=== PATIENT | male | born 1955 | race Caucasian/White ===

== ENCOUNTER 2018-03-03 05:58 | Inpatient (IN) | payer OTHER ==
[2018-02-26 15:26] LABS: BASOPHILS % (AUTO) 0.4 % (0-1); EOSINOPHILS # (AUTO) 0.1 X10'3 (0-0.9); EOSINOPHILS % (AUTO) 1.9 % (0-6); LYMPHOCYTES # (AUTO) 2.1 X10'3 (1.1-4.8); LYMPHOCYTES % (AUTO) 31.4 % (21-51); MEAN CORPUSCULAR HEMOGLOBIN 32.2 PG (27.0-31.0); MEAN CORPUSCULAR HGB CONC 34.1 % (33.0-36.5); MEAN CORPUSCULAR VOLUME 94.5 FL (78-98); MEAN PLATELET VOLUME 7.3 FL (7.4-10.4); MONOCYTES # (AUTO) 0.8 X10'3 (0-0.9); MONOCYTES % (AUTO) 11.4 % (2-12); NEUTROPHILS # (AUTO) 3.6 X10'3 (1.8-7.7); NEUTROPHILS % (AUTO) 54.9 % (42-75); PRE OP HEMATOCRIT 47.3 % (42.0-52.0); PRE OP HEMOGLOBIN 16.1 g/dL (14.0-17.9); PRE OP PLATELET COUNT 269 X10'3 (140-440); RED BLOOD COUNT 5.01 X10'6 (4.70-6.10); RED CELL DISTRIBUTION WIDTH 13.1 % (11.5-14.5)
[2018-02-26 15:41] LABS: ALBUMIN 3.8 G/DL (3.4-5.0); ALKALINE PHOSPHATASE 82 IU/L (46-116); BLOOD UREA NITROGEN 25 MG/DL (7-18); BUN/CREATININE RATIO 23.8 (5.4-32.0); CHLORIDE 104 MMOL/L (99-107); CREATININE 1.05 MG/DL (0.60-1.10); PRE OP ALT 56 U/L (30-65); PRE OP ANION GAP 6 (8-16); PRE OP AST 32 U/L (10-37); PRE OP BILIRUB, TOTAL 0.6 MG/DL (0.0-1.0); PRE OP GLUCOSE 91 MG/DL (70-104); PRE OP SODIUM 139 MMOL/L (135-145); TOTAL CARBON DIOXIDE 28.9 MMOL/L (24-32); TOTAL PROTEIN 7.6 G/DL (6.4-8.2); eGFR 71 ML/MIN
[2018-02-26 15:45] LABS: PRE OP PROTIME 10.2 SECONDS (9.0-12.0)
[2018-02-26 16:01] LABS: CLARITY,URINE CLEAR (Clear); COLOR,URINE YELLOW (Yellow); GLUCOSE, URINE NEGATIVE (Neg); KETONES,URINE NEGATIVE (Neg); LEUKOCYTE ESTERASE ,URINE NEGATIVE (Neg); NITRITES, URINE NEGATIVE (Neg); OCCULT BLOOD,URINE NEGATIVE (Neg); PH,URINE 5.5 (4.8-8.0); PROTEIN,URINE NEGATIVE (Neg); UA COLLECTION TYPE CLN CATCH MIDSTREAM; UROBILINOGEN,URINE 0.2 E.U/dL (0.2-1.0)
[2018-03-03] VITALS (17 sets, daily range): BP systolic 106–146; BP diastolic 57–90
[~2018-03-03] VITALS: Ht 180.3 cm; Wt 98.9 kg
[~2018-03-03 05:58] MED LIST: ASCO100T10 PO; ASPI-1265 PO; CHOL100046 PO; DOCUMENT DATE & TIME OF BETA-BLOCKER PO ONE; FISH OIL; LOSA50TA21 PO; MELO-102 PO; METO100T7 PO; MONT10TA24 PO; OLIV250C PO; RED RICE YEAST; ROSU5TAB PO; UBID10CA4; VITE1000C PO; acetaminophen 325mg tablet PO ONE; cefazolin/dext.iso 2gm/100 ML IV ONE; celeCOXIB 100mg capsule PO ONE; famotidine 20mg tablet PO ONE; gabapentin 300mg capsule PO ONE; metoclopramide 5 mg/ml inj IV ONE; oxyCODONE SR 10mg (sust. release) tab -2 tabs (20mg) PO ONE; ringers solution, lacted 1,000 ML IV SCH; tranexamic acid inj. 1,000 MG in normal saline 100ml IV soln 90 ML IV ONE; vancomycin inj 1,500 MG in normal saline 300ml IV soln IV ONE
[2018-03-03] MEDS ORDERED: LIDOcaine 1% (10mg/ml) 2ml vial ONE (06:25)
[2018-03-03] MEDS ORDERED: bisacodyl 10mg suppository rectal RC PRN (06:50)
[2018-03-03] MEDS ORDERED: oxyCODONE/APAP 5-325mg tablet PO PRN (06:50)
[2018-03-03] MEDS ORDERED: magnesium hydroxide 30ml (MOM) UD suspension PO PRN (06:50)
[2018-03-03] MEDS ORDERED: diphenhydrAMINE 25mg capsule PO PRN ×2 (06:50)
[2018-03-03] MEDS ORDERED: acetaminophen 325mg tablet PO PRN (06:50)
[2018-03-03] MEDS ORDERED: cloNIDine hcl/PF 100mcg/ml inj ONE (08:16)
[2018-03-03] MEDS ORDERED: tetracaine 1% (10mg/ml) pres. free inj. ONE (08:16)
[2018-03-03] MEDS ORDERED: MIDAZolam 1mg/ml 10ml vial ONE (08:18)
[2018-03-03] MEDS ORDERED: fentaNYL/PF 50MCG/1 ML 2ML syringe ONE (08:18)
[2018-03-03] MEDS ORDERED: propofol inj 20 ML IV ONE ×2 (08:44)
[2018-03-03] MEDS ORDERED: vancomycin 1,000mg inj ONE (08:54)
[2018-03-03] MEDS ORDERED: ringers solution, lacted 1,000 ML IV SCH (09:14)
[2018-03-03] MEDS ORDERED: meperidine/PF 25mg/ml syringe IV PRN ×3 (09:15)
[2018-03-03] MEDS ORDERED: proCHLORperazine 10 MG/2 ml inj IV PRN (09:15)
[2018-03-03] MEDS ORDERED: ondansetron/PF 4mg/2ml inj IV PRN ×2 (09:15→14:00)
[2018-03-03] MEDS ORDERED: morphine 4 MG/ML inj SYRINge IV PRN ×2 (09:15)
[2018-03-03] MEDS ORDERED: ROPIVAcaine 0.5% (5mg/ml) 30ml vial ONE (10:12)
[2018-03-03] MEDS ORDERED: HYDROmorphone 1 mg/ml syringe IV PRN (12:15)
[2018-03-03] MEDS: gabapentin 300mg capsule PO SCH ×2 (13:59→20:38)
[2018-03-03] MEDS ORDERED: tranexamic acid inj. 1,000 MG in normal saline 100ml IV soln 100 ML IV ONE (15:00)
[2018-03-03] MEDS: oxyCODONE/APAP 10/325mg tablet PO PRN ×2 (15:45→19:57)
[2018-03-03] MEDS: cefazolin/dext.iso 2gm/100ml 100 ML IV SCH (15:47)
[2018-03-03] MEDS: potassium cl 20mEq in 1/2 NS 1,000 ML IV SCH (17:17)
[2018-03-03] MEDS: sennosides 8.6mg tablet PO SCH (20:38)
[2018-03-03] MEDS: metoprolol succinate 25mg (24-HOUR) SR. Tablet PO SCH (20:38)
[2018-03-03] MEDS: ascorbic acid 500mg tablet PO SCH (20:38)
[2018-03-04] MEDS: oxyCODONE/APAP 10/325mg tablet PO PRN ×5 (00:13→20:37)
[2018-03-04] MEDS: cefazolin/dext.iso 2gm/100ml 100 ML IV SCH ×4 (00:13→23:41)
[2018-03-04] MEDS: potassium cl 20mEq in 1/2 NS 1,000 ML IV SCH ×4 (03:58→20:14)
[2018-03-04 06:23] LABS: BASOPHILS % (AUTO) 0.1 % (0-1); EOSINOPHILS # (AUTO) 0.2 X10'3 (0-0.9); EOSINOPHILS % (AUTO) 1.3 % (0-6); HEMATOCRIT 39.5 % (42.0-52.0); HEMOGLOBIN 13.6 g/dl (14.0-17.9); LYMPHOCYTES # (AUTO) 1.3 X10'3 (1.1-4.8); LYMPHOCYTES % (AUTO) 9.3 % (21-51); MEAN CORPUSCULAR HEMOGLOBIN 32.3 PG (27.0-31.0); MEAN CORPUSCULAR HGB CONC 34.5 % (33.0-36.5); MEAN CORPUSCULAR VOLUME 93.7 FL (78-98); MEAN PLATELET VOLUME 7.3 FL (7.4-10.4); MONOCYTES # (AUTO) 1.2 X10'3 (0-0.9); MONOCYTES % (AUTO) 8.7 % (2-12); NEUTROPHILS # (AUTO) 10.8 X10'3 (1.8-7.7); NEUTROPHILS % (AUTO) 80.6 % (42-75); PLATELET COUNT 240 X10'3 (140-440); RED BLOOD COUNT 4.21 X10'6 (4.70-6.10); RED CELL DISTRIBUTION WIDTH 12.5 % (11.5-14.5); WHITE BLOOD COUNT 13.4 X10'3 (4.5-11.0)
[2018-03-04 06:32] LABS: ANION GAP 11 (8-16); CHLORIDE 105 MMOL/L (99-107); POTASSIUM 3.9 MMOL/L (3.5-5.1); SODIUM 138 MMOL/L (135-145); TOTAL CARBON DIOXIDE 22.4 MMOL/L (24-32)
[2018-03-04] MEDS ORDERED: ROPIVAcaine inj 250 MG, ketorolac tromethamine inj. 15 MG, CloNIDine/PF inj 80 MCG, epi... IU ONE ×5 (08:15)
[2018-03-04] MEDS: atorvastatin 10mg tablet PO SCH (08:55)
[2018-03-04] MEDS: losartan 50mg tablet PO SCH (08:55)
[2018-03-04] MEDS: montelukast 10mg tablet PO SCH (08:56)
[2018-03-04] MEDS: gabapentin 300mg capsule PO SCH ×3 (08:56→20:37)
[2018-03-04] MEDS: multivitamins, therapeutics tablet PO SCH (08:57)
[2018-03-04] MEDS: aspirin 325mg tablet PO SCH (08:57)
[2018-03-04] MEDS: ascorbic acid 500mg tablet PO SCH ×2 (08:57→20:37)
[2018-03-04 10:00] VITALS: BP 106/65
[2018-03-04 10:45] VITALS: BP 167/68
[2018-03-04 11:37] VITALS: BP 117/65
[2018-03-04] MEDS: HYDROmorphone 1 mg/ml syringe IV PRN ×2 (16:19→21:30)
[2018-03-04 18:00] VITALS: BP 120/67
[2018-03-04] MEDS: sennosides 8.6mg tablet PO SCH (20:36)
[2018-03-04] MEDS: celeCOXIB 100mg capsule PO SCH (20:36)
[2018-03-04] MEDS: metoprolol succinate 25mg (24-HOUR) SR. Tablet PO SCH (20:37)
[2018-03-04 22:00] VITALS: BP 137/73
[2018-03-05] MEDS: oxyCODONE/APAP 10/325mg tablet PO PRN ×2 (00:14→03:53)
[2018-03-05] MEDS ORDERED: oxyCODONE/APAP 10/325mg tablet PO PRN ×2 (05:00→07:45)
[2018-03-05 06:04] LABS: BASOPHILS % (AUTO) 0.2 % (0-1); EOSINOPHILS # (AUTO) 0.3 X10'3 (0-0.9); EOSINOPHILS % (AUTO) 2.7 % (0-6); HEMATOCRIT 39.6 % (42.0-52.0); HEMOGLOBIN 13.3 g/dl (14.0-17.9); LYMPHOCYTES # (AUTO) 1.2 X10'3 (1.1-4.8); LYMPHOCYTES % (AUTO) 12.7 % (21-51); MEAN CORPUSCULAR HEMOGLOBIN 31.9 PG (27.0-31.0); MEAN CORPUSCULAR HGB CONC 33.7 % (33.0-36.5); MEAN CORPUSCULAR VOLUME 94.6 FL (78-98); MEAN PLATELET VOLUME 7.1 FL (7.4-10.4); MONOCYTES # (AUTO) 1.6 X10'3 (0-0.9); MONOCYTES % (AUTO) 15.9 % (2-12); NEUTROPHILS # (AUTO) 6.7 X10'3 (1.8-7.7); NEUTROPHILS % (AUTO) 68.5 % (42-75); PLATELET COUNT 223 X10'3 (140-440); RED BLOOD COUNT 4.19 X10'6 (4.70-6.10); RED CELL DISTRIBUTION WIDTH 12.7 % (11.5-14.5); WHITE BLOOD COUNT 9.8 X10'3 (4.5-11.0)
[2018-03-05] MEDS: atorvastatin 10mg tablet PO SCH (07:46)
[2018-03-05] MEDS: aspirin 325mg tablet PO SCH (07:46)
[2018-03-05] MEDS: losartan 50mg tablet PO SCH (07:47)
[2018-03-05] MEDS: multivitamins, therapeutics tablet PO SCH (07:47)
[2018-03-05] MEDS: celeCOXIB 100mg capsule PO SCH (07:47)
[2018-03-05] MEDS: montelukast 10mg tablet PO SCH (07:47)
[2018-03-05] MEDS: ascorbic acid 500mg tablet PO SCH (07:47)
[2018-03-05] MEDS: gabapentin 300mg capsule PO SCH (07:47)
[2018-03-05] MEDS ORDERED: ASPI-1 PO (08:45)
== END 2018-03-05 10:25 | disposition home or self-care (01) | DRG 470 ==
LOC: PAS IN 05:58 → EDSTATUS 07:30 → ORTHO 4S 11:50
PROVIDERS: ADMIT Orthopaedic Surgery; ATTEND Orthopaedic Surgery
PROC: 3E0T3BZ Introduction of Anesthetic Agent into Peripheral Nerves and Plexi, Percutaneous Approach (ICD-10-PCS; 2018-03-03)
PROC: 0SRD0J9 Replacement of Left Knee Joint with Synthetic Substitute, Cemented, Open Approach (ICD-10-PCS; principal; 2018-03-03 08:16)
DX: M17.12 Unilateral primary osteoarthritis, left knee (principal); D62 Acute posthemorrhagic anemia; M76.51 Patellar tendinitis, right knee; I25.10 Atherosclerotic heart disease of native coronary artery without angina pectoris; Z96.651 Presence of right artificial knee joint; I10 Essential (primary) hypertension; Z79.899 Other long term (current) drug therapy; Z95.5 Presence of coronary angioplasty implant and graft
CPT/HCPCS: 36415; 71046; 73560; 80051; 80053; 81003; 85025; 85610; 85730; 87070; 93005; 97110; 97116; 97162; A6449; A6455; A7000; C1713; C1758; C1776; G0378; J0171; J0690; J0735; J1170; J1885; J2250; J2405; J2704; J2765; J2795; J3010; J3370; J3490; J7030; J7120

== ENCOUNTER 2019-01-26 01:03 | Outpatient (CLI) | payer SELFPAY ==
[~2019-01-26 01:03] MED LIST changes: +ASPI-1 PO; -DOCUMENT DATE & TIME OF BETA-BLOCKER PO ONE; -LOSA50TA21 PO; +LOSA50TA64 PO; -acetaminophen 325mg tablet PO ONE; -cefazolin/dext.iso 2gm/100 ML IV ONE; -celeCOXIB 100mg capsule PO ONE; -famotidine 20mg tablet PO ONE; -gabapentin 300mg capsule PO ONE; -metoclopramide 5 mg/ml inj IV ONE; -oxyCODONE SR 10mg (sust. release) tab -2 tabs (20mg) PO ONE; -ringers solution, lacted 1,000 ML IV SCH; -tranexamic acid inj. 1,000 MG in normal saline 100ml IV soln 90 ML IV ONE; -vancomycin inj 1,500 MG in normal saline 300ml IV soln IV ONE
[2019-01-26 09:13] LABS: HEMOGLOBIN A1C 5.7 % (4.5-6.2)
[2019-01-26 09:18] LABS: CHOL/HDL RATIO 2.96 (0.00-4.99)
== END 2019-01-26 23:59 | disposition home or self-care (01) ==
LOC: HW HEART 01:03
DX: Z13.6 Encounter for screening for cardiovascular disorders (principal); R00.1 Bradycardia, unspecified; I10 Essential (primary) hypertension
CPT/HCPCS: 36415

== ENCOUNTER 2025-01-03 06:10 | Day surgery (SDC) | payer OTHER, MEDICARE, BC ==
[2024-12-31 11:32] LABS: MEAN PLATELET VOLUME 6.8 FL (7.4-10.4); RED CELL DISTRIBUTION WIDTH 14.6 % (11.5-14.5)
[2024-12-31 11:41] LABS: CREATININE 1.04 MG/DL (0.60-1.10); TOTAL CARBON DIOXIDE 29.9 MMOL/L (24-32); eGFR 70 ML/MIN
[~2025-01-03] VITALS: Ht 182.9 cm; Wt 105.9 kg
[2025-01-03] VITALS (9 sets, daily range): BP systolic 122–154; BP diastolic 69–84; PULSE 49–60; RESP 12–17; TEMP 97.8; O2SAT 94–98
[~2025-01-03 06:10] MED LIST changes: -FISH OIL; +FISH OIL PO; +MONT-40 PO; -MONT10TA24 PO
--- NOTE | 2025-01-03 06:44 | ELECTROCARDIOGRAPH REPORT ---
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 Rain Marion Measurements Intervals [place] Rate: 57 P: 38 TX: 189 QRS: 22 QRSD: 96 T: 2 QT: 422 QTc: 411 Interpretive Statements Sinus rhythm Borderline T abnormalities, inferior leads Electronically Signed On 01-03-2025 6:54:[address] Rain Marion Please click the below link to view image of tracing.
[2025-01-03] MEDS ORDERED: ROSU10TA72 PO (07:00)
[2025-01-03] MEDS ORDERED: CELE-148 PO (07:00)
[2025-01-03] MEDS ORDERED: TAMS-55 PO (07:00)
[2025-01-03] MEDS ORDERED: NIAC500C8 PO (07:03)
[2025-01-03] MEDS ORDERED: OXYC-150 PO (07:03)
[2025-01-03 07:12] LABS: INR 1.0 INR
[2025-01-03] MEDS ORDERED: verapamil 2.5 mg/ml inj IV ONE (07:47)
[2025-01-03] MEDS ORDERED: LIDOcaine 1% (10mg/ml) 2ml vial ONE (07:47)
[2025-01-03] MEDS ORDERED: iohexol 350 MG/ML 50ML vial IV ONE ×2 (07:48→08:52)
[2025-01-03] MEDS ORDERED: fentaNYL/PF 50MCG/1 ML 2ML syringe ONE (07:48)
[2025-01-03] MEDS ORDERED: midazolam 1 mg/ML 2ml injection ONE (07:48)
[2025-01-03] MEDS ORDERED: heparin 1,000unit/ml 10ml vial 10 ML ONE (07:48)
[2025-01-03] MEDS ORDERED: nitroGLYCERIN 500mcg/5mL D5W 5 ML IV ONE (07:52)
[2025-01-03] MEDS ORDERED: LIDOcaine 1% 30ml preserv. free vial ONE (08:53)
[2025-01-03 10:08] LABS: ISTAT HGB ART 14.3 g/dl (14.0-17.9); ISTAT Hct ART 42 %PCV (42-52); ISTAT O2 SATURATION ARTERIAL 95 % (95-98); ISTAT SOURCE ART
[2025-01-03] MEDS ORDERED: normal saline 1000ml 1,000 ML IV SCH (10:25)
[2025-01-03 10:58] LABS: ISTAT HGB MIX 12.6 g/dl (14.0-17.9); ISTAT Hct MIX 37 %PCV (42-52); ISTAT O2 SATURATION MIX VENOUS 71 % (60-80); ISTAT SOURCE VEN
[2025-01-03] MEDS ORDERED: ROSU40TA89 PO (13:30)
[2025-01-03] MEDS ORDERED: ISOS30TA84 PO (13:30)
--- NOTE | 2025-01-04 08:45 | CARDIOLOGY REPORT ---
DATE OF SERVICE: 01/03/2025 DICTATING PHYSICIAN: TIERNEY Solano MD CARDIAC CATHETERIZATION GENDER: Male. AGE: 69 years HEIGHT: 182 cm WEIGHT: 105 kilos BODY SURFACE AREA: 2.26 meters square. INDICATION: The patient is a 69-year-old male with history of diabetes, hypertension, hyperlipidemia, CAD status post coronary artery stenting. History of CAD dates back to PTCA stenting of his proximal mid LAD in the year 1999 with 3/31 mm [place] stent in RCA, had a 50% narrowing. Back in 03/2023, the patient had a positive stress test. At that time, he had preferred medical therapy. A repeat stress test in 11/2024 showed again persisting reversible defect in the distal inferolateral wall. After discussing risks, benefits, and alternative options, progressive shortness of breath, the patient prefers to proceed with coronary angiography. Risks, benefits, and alternative options discussed. Informed consent was obtained. PROCEDURE TECHNIQUE: The patient underwent left heart catheterization via right radial approach and 6-[place] right radial sheath was put in. After completion of the procedure, hemostasis achieved with radial band. The patient tolerated the procedure. The patient had a right heart catheterization via right femoral approach, 8-[place] right femoral sheath. Postprocedure right access secured with manual compression. The patient tolerated the procedure well. COMPLICATIONS: None. Primary physician for the patient is less than medical Clinic. PROCEDURES DONE: * Ultrasound guided right radial artery visualization and access. * Right heart catheterization. * Left heart catheterization. * LVG. * Coronary cineangiography. * GALEN injection. * Conscious sedation of 75 minutes. FINDINGS: HEMODYNAMICS: LV systolic 138 mmHg, diastolic 77 mmHg, mean 96 mmHg. LVEDP of 13 mmHg. No significant gradient across the aortic valve. LEFT VENTRICULOGRAM: Left main coronary artery is a large caliber vessel arising from the left aortic sinus with mild luminal irregularities. LAD is medium caliber vessel arising at the bifurcation of left main coronary artery and courses through the anterior interventricular groove, ends at the apex. Proximal LAD, there is a severe in-stent narrowing of 90% narrowing . Mid LAD has 90% narrowing as well. There is diagonal 1.75 in the middle with 70% narrowing. Circumflex artery. Circumflex artery is a medium caliber arising at the bifurcation of left main coronary artery course through the left AV groove, distally, he has 90% narrowing. OM 3 small distal OMs seen. There is a ramus intermedius which also has a proximal 98% narrowing with mild luminal irregularities. Right coronary artery is a medium caliber vessel arising at the right aortic sinus and courses through the right AV groove and proximally has a 30% and mid 80% narrowing. Overall left ventricular systolic function is about 50%. IMPRESSION: * left ventricular EF of 50%. * LVEDP of 13 mmHg with no significant gradient across the aortic valve. Left main normal. Proximal LAD, long 90% instant narrowing, mid LAD 90% narrowing. Small diagonal with 70% narrowing. Ramus intermedius has 98% narrowing. Distal circumflex has 90% narrowing. RCA proximal 30, mid 80% narrowing. RECOMMENDATIONS: Finding discussed with patient. Different treatment options discussed with patient. Risks, benefits and alternative options were discussed in detail with the patient and his . Subsequently the decided to proceed with surgical revascularization. Patient was referred to Cardiothoracic surgeon TIERNEY Solano MD TID: [id number] RECEIPT: [id number] SHAYY/TIBURCIO/JOAQUIN JOAQUIN
== END 2025-01-03 13:45 | disposition home or self-care (01) ==
LOC: SSTAY O 06:10
PROVIDERS: ATTEND Internal Medicine Cardiovascular Disease
DX: I47.10 Supraventricular tachycardia, unspecified (principal); R07.9 Chest pain, unspecified; I25.119 Atherosclerotic heart disease of native coronary artery with unspecified angina pectoris; I10 Essential (primary) hypertension; I49.5 Sick sinus syndrome; I25.10 Atherosclerotic heart disease of native coronary artery without angina pectoris; E78.5 Hyperlipidemia, unspecified; E11.9 Type 2 diabetes mellitus without complications; Z79.82 Long term (current) use of aspirin; Z98.890 Other specified postprocedural states
CPT/HCPCS: 36415; 80048; 82803; 85014; 85025; 85610; 93005; 93460; J1644; J2003; J2250; J3010; J3490; J7030; Q0163; Q9967; 76937; 99152; 99153; A6258; A6402; A6449; C1725; C1751; C1769; C1887; C1894